=== PATIENT | female | born 1985 | race Caucasian/White ===

== ENCOUNTER 2019-04-10 21:56 | Emergency (ER) | payer OTHER ==
[~2019-04-10] VITALS: Ht 167.6 cm; Wt 68.0 kg
--- NOTE | 2019-04-10 22:50 | NUR ---
Patient came in for c/o rash on forehead that she noticed when she woke up this morning. A/Ox4. Speech is clear, speaks in complete sentences. No neuro deficits noted. Patient had taken zyrtec and applied hydrocortisone for the itchiness but failed to resolve. Respiratory even and unlabored, no cough no sob. No cardiovascular distress noted, all pulses palpable. No GI/ distress. Patient in bed at lowest position, sr upx2, call light within reach, relative at bedside. Fall precautions implemented per protocol.
[2019-04-10] MEDS ORDERED: SULFAMETH/TRIMETH 800/160 MG TABLET PO ONE (23:45)
[2019-04-10] MEDS ORDERED: CEphaleXIN 500 MG CAPSULE PO ONE (23:45)
--- NOTE | 2019-04-11 00:05 | NUR ---
Patient discharged to home in stable conditon. Written and verbal after care instructions given. Patient verbalizes understanding of instructions. Patient ambulated with stable gait. 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
[2019-04-11 00:16] VITALS: BP 101/60
== END 2019-04-11 00:16 | disposition home or self-care (01) ==
LOC: ER 21:56
DX: L03.211 Cellulitis of face (principal)
CPT/HCPCS: A4663